=== PATIENT | male | born 1940 | race Caucasian/White ===

== ENCOUNTER 2016-07-21 | Outpatient (CLI) | payer MEDICARE | END 2016-07-21 20:33 | disposition EMS.NT | DX: R06.00 Dyspnea, unspecified (principal) ==

== ENCOUNTER 2017-07-28 12:48 | Emergency (ER) | payer MEDICARE, OTHER ==
[2017-07-28 13:04] VITALS: BP 143/63
--- NOTE | 2017-07-28 13:34 | XRAY Preliminary Report ---
Exam: XR CHEST 2 VIEW X-RAY IMPRESSION: No acute cardiopulmonary abnormality. [facility] SITE ID: [id number]
--- NOTE | 2017-07-28 13:35 | XRAY Report ---
EXAM: CHEST RADIOGRAPHY EXAM DATE: 07/28/2017 01:22 PM. CLINICAL HISTORY: Cough,fever. COMPARISON: None. TECHNIQUE: 2 views. FINDINGS: Lungs/Pleura: No focal opacities evident. No pleural effusion. No pneumothorax. Normal volumes. Mediastinum: Heart and mediastinal contours are unremarkable. Other: None. IMPRESSION: No acute cardiopulmonary abnormality. [facility] Referring Provider Line: [phone] SITE ID: [id number]
--- NOTE | 2017-07-28 14:01 | ED Physician Documentation ---
PD HPI URI - Stated complaint Stated Complaint: FEVER - Chief complaint Chief Complaint: General - History obtained from History obtained from: Patient, Family - History of Present Illness Timing - onset: Yesterday Timing duration: Days (1) Timing details: Gradual onset, Still present Associated symptoms: Fever, Chills, Sweats, Nasal congestion, Rhinorrhea, Sinus pain (for one week.), Productive cough Contributing factors: Immunocompromised Improves by: Rest, Medication Worsened by: Activity Similar symptoms before: Diagnosis (sinusitis) Recently seen: Clinic - Additional information Additional information: 77-year-old male on Enbrel with a history of rheumatoid arthritis has developed some nasal congestion and sinus pressure about 1 week ago. He has had a cough and has swallowed a lot of phlegm. He subsequently developed a fever and arthralgias yesterday. He feels that he has been developing a sinus infection similar to what he gets every year and then yesterday he developed the acute febrile symptoms. Review of Systems Constitutional: reports: Fever, Chills, Myalgias, Fatigue, Sweats Eyes: denies: Decreased vision Ears: denies: Ear pain Nose: reports: Rhinorrhea / runny nose, Congestion, Sinus pressure / pain Throat: reports: Sore throat Cardiac: denies: Chest pain / pressure, Palpitations Respiratory: reports: Dyspnea, Cough GI: denies: Abdominal Pain, Nausea, Vomiting, Constipation, Diarrhea : denies: Dysuria, Frequency Skin: denies: Rash Musculoskeletal: denies: Neck pain, Back pain, Extremity pain Neurologic: denies: Generalized weakness, Focal weakness, Numbness PD PAST MEDICAL HISTORY - Present Medications Home Medications: Ambulatory Orders Medication Instructions Recorded Confirmed Levofloxacin [Levaquin] 500 mg PO DAILY #14 tablet 07/28/17 Oseltamivir [Tamiflu] 75 mg PO BID #10 capsule 07/28/17 - Allergies Allergies/Adverse Reactions: Allergies Allergy/AdvReac Type Severity Reaction Status Date / Time clindamycin Allergy Unknown Verified 07/28/17 13:07 Penicillins Allergy Unknown Verified 07/28/17 13:07 Sulfa (Sulfonamide Allergy Unknown Verified 07/28/17 13:07 Antibiotics) tetracycline Allergy Unknown Verified 07/28/17 13:07 PD ED PE NORMAL - Vitals Vital signs reviewed: Yes (hypertensive mild ) - General General: Alert and oriented X 3, No acute distress, Well developed/nourished - HEENT HEENT: Atraumatic, PERRL, EOMI, Ears normal, Other (dry mucous membranes. bilateral maxillary sinus point tenderness. 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, No motor deficit, No sensory deficit, Normal speech Eye Opening: Spontaneous Motor: Obeys Commands Verbal: Oriented GCS Score: 15 - Psych Psych: Normal mood, Normal affect Results - Vitals Vitals: Vital Signs - 24 hr 07/28/17 13:02 Temperature 37.1 C Heart Rate 74 Respiratory 16 Rate Blood Pressure 143/63 H O2 Saturation 96 Oxygen O2 Source Room air - Labs Labs: Laboratory Tests 07/28/17 13:05 Influenza A (Rapid) Negative Influenza B (Rapid) POSITIVE H Influenza Types A,B Ag + H - Rads (name of study) 2 view chest Radiology: Prelim report reviewed (Impression: No acute cardiopulmonary abnormality.), EMP read indepedently, See rad report PD MEDICAL DECISION MAKING - ED course Complexity details: reviewed old records, reviewed results, re-evaluated patient , considered differential, d/w patient, d/w family ED course: 77-year-old male on Enbrel who has developed signs of a sinus infection typical for him for this time of year. I reviewed his record and found a prior transfer for sinus symptoms 1 year ago to the day. He was on Levaquin at that time and relates that that was successful in treating his sinus infection. He has subsequently developed influenza B. I suspect he developed influenza B yesterday by history. Here in the emergency department he is given dexamethasone 10 mg orally we will place him both on Levaquin and Tamiflu. Departure - Departure Disposition: 01 Home, Self Care Clinical Impression: Influenza B Sinusitis Qualifiers: Sinusitis location: maxillary Chronicity: acute Recurrence: not specified as recurrent Qualified Code(s): J01.00 - Acute maxillary sinusitis, unspecified Condition: Stable Instructions: ED Sinusitis Abx Tx, ED Flu Follow-Up: Nitesh,Neil A, MD [Primary Care Provider] - Prescriptions: Levofloxacin [Levaquin] 500 mg PO DAILY #14 tablet Oseltamivir [Tamiflu] 75 mg PO BID #10 capsule
[2017-07-28] MEDS ORDERED: DEXAMETHASONE 10 MG/ML VIAL PO STA (14:13)
[2017-07-28] MEDS ORDERED: CHERRY SYRUP 10 ML UDC PO ONE (14:28)
== END 2017-07-28 14:28 | disposition home or self-care (01) ==
LOC: ED 12:48
DX: J10.1 Influenza due to other identified influenza virus with other respiratory manifestations (principal); J01.00 Acute maxillary sinusitis, unspecified; M06.9 Rheumatoid arthritis, unspecified
CPT/HCPCS: 71046; 87275; 87276; 99283; 99284; A9270

== ENCOUNTER 2017-07-31 22:20 | Outpatient (CLI) | payer MEDICARE, OTHER | END 2017-07-31 22:21 | disposition critical access hospital (66) | LOC: EMS 22:20 | PROVIDERS: ATTEND Surgery | DX: R40.0 Somnolence (principal); R06.00 Dyspnea, unspecified; R05 Cough; R50.9 Fever, unspecified | CPT/HCPCS: A0425; A0427 ==

== ENCOUNTER 2017-07-31 22:53 | Inpatient (IN) | payer MEDICARE, OTHER ==
[2017-07-31 23:16] LABS: BASOPHILS # (AUTO) 0.1 10^3/uL (0.0-0.1); BASOPHILS % (AUTO) 0.8 %; EOSINOPHILS % (AUTO) 0.1 %; HGB - HEMOGLOBIN 14.4 g/dL (14.0-18.0); LYMPHOCYTES # (AUTO) 0.7 10^3/uL (1.5-3.5); LYMPHOCYTES % (AUTO) 8.7 %; MEAN CORPUSCULAR HEMOGLOBIN 32.6 pg (27.0-31.0); MEAN CORPUSCULAR HGB CONC 34.5 g/dL (32.0-36.0); MEAN CORPUSCULAR VOLUME 94.7 fL (80.0-94.0); MONOCYTES # (AUTO) 1.2 10^3/uL (0.0-1.0); MONOCYTES % (AUTO) 15.8 %; NEUTROPHILS # (AUTO) 5.6 10^3/uL (1.5-6.6); NEUTROPHILS % (AUTO) 74.6 %; PLT - PLATELET COUNT 107 10^3/uL (130-450); RED BLOOD COUNT 4.43 10^6/uL (4.70-6.10); WHITE BLOOD COUNT 7.5 x10^3/uL (4.8-10.8)
[2017-07-31 23:29] LABS: ALBUMIN 3.7 g/dL (3.2-5.5); BILIRUBIN,TOTAL 0.7 mg/dL (0.2-1.0); CALCIUM 8.2 mg/dL (8.5-10.3); TOTAL PROTEIN 7.4 g/dL (6.7-8.2)
--- NOTE | 2017-07-31 23:53 | XRAY Report ---
EXAM: CHEST RADIOGRAPHY EXAM DATE: 07/31/2017 11:45 PM. CLINICAL HISTORY: Bibasilar rhonchi. COMPARISON: None. TECHNIQUE: 2 views. FINDINGS: Lungs/Pleura: Mild bilateral atelectasis or infiltrate. No pleural effusion seen. No pneumothorax. Mediastinum: Lordotic position. Mild cardiomegaly. Other: None. IMPRESSION: 1. Mild cardiomegaly with mild bilateral atelectasis or infiltrate. [facility] Referring Provider Line: [phone] SITE ID: [id number]
--- NOTE | 2017-07-31 23:58 | ED Physician Documentation ---
PD HPI URI - Stated complaint Stated Complaint: CONFUSED - Chief complaint Chief Complaint: Resp - History obtained from History obtained from: Patient, Family - History of Present Illness Timing - onset: How many days ago (5) Timing duration: Days (5) Timing details: Gradual onset, Still present, Other (now worse) Associated symptoms: Fever, Chills, Sweats, Nasal congestion, Rhinorrhea, Dry cough, Dyspnea Contributing factors: Immunocompromised Improves by: Rest, Medication Similar symptoms before: Diagnosis (pneumonia) Recently seen: Emergency Dept - Additional information Additional information: 77-year-old male on Enbrel developed a cough and congestion a lot of nasal postnasal drainage 10 days ago and about 5 days ago developed an acute febrile illness. He came to the emergency department was diagnosed with influenza with a positive swab and he was placed on Tamiflu and Levaquin. He has a history of yearly sinus infection and felt that he had sinus infection again. Despite this treatment the patient has developed acute worsening this morning with reduced level of activity and has been sleeping all day this evening he is even a little bit confused. Review of Systems Constitutional: reports: Fever, Chills, Myalgias, Fatigue Eyes: denies: Decreased vision Ears: denies: Ear pain Nose: reports: Rhinorrhea / runny nose, Congestion, Sinus pressure / pain Throat: denies: Sore throat Cardiac: denies: Chest pain / pressure, Palpitations Respiratory: reports: Dyspnea, Cough GI: denies: Abdominal Pain, Nausea, Vomiting : denies: Dysuria, Frequency Skin: denies: Rash Musculoskeletal: denies: Neck pain, Back pain, Extremity pain Neurologic: reports: Generalized weakness, Confused. denies: Focal weakness, Numbness PD PAST MEDICAL HISTORY - Past Medical History Past Medical History: Yes Musculoskeletal: Rheumatoid arthritis - Past Surgical History Past Surgical History: Yes Ortho: Hip replacement, Shoulder arthroplasty - Present Medications Home Medications: Ambulatory Orders Medication Instructions Recorded Confirmed Albuterol Sulf [Ventolin Hfa 1 - 2 puffs INH Q4HR PRN 07/28/17 07/28/17 Inhaler] Azelastine HCl 137 mcg NS 07/28/17 Budesonide/Formoterol Fumarate 10.2 gm IH 07/28/17 [Symbicort 160-4.5 Mcg Inhaler] Calcium Carbonate [Antacid] 07/28/17 Celecoxib [CeleBREX] 100 mg PO BID 07/28/17 07/28/17 Chlorthalidone 12.5 mg 07/28/17 Clobetasol Propionate/Emoll 15 gm TP 07/28/17 [Clobetasol Emollient 0.05% Crm] Flunisolide 25 ml NS 07/28/17 Folic Acid 1 mg PO DAILY 07/28/17 07/28/17 Gabapentin 600 mg PO 07/28/17 Infliximab-Abda [Renflexis] 100 mg IV 07/28/17 Ipratropium/Albuterol Sulfate 07/28/17 [Iprat-Albut 0.5-3(2.5) mg/3 ml] Levofloxacin [Levaquin] 500 mg PO DAILY #14 tablet 07/28/17 Loratadine [Claritin] 10 mg PO 07/28/17 Methotrexate/Pf [Rasuvo 10 mg/0.2 07/28/17 ml Autoinj] Methotrexate/Pf [Rasuvo 10 mg/0.2 10 mg SQ 07/28/17 ml Autoinj] Omeprazole 40 mg PO 07/28/17 Oseltamivir [Tamiflu] 75 mg PO BID #10 capsule 07/28/17 Promethazine HCl/Codeine 5 ml PO 07/28/17 [Prometh-Codein 6.25-10 mg/5 ml] Sildenafil Citrate 100 mg PO 07/28/17 - Allergies Allergies/Adverse Reactions: Allergies Allergy/AdvReac Type Severity Reaction Status Date / Time clindamycin Allergy Unknown Verified 07/28/17 13:07 Penicillins Allergy Unknown Verified 07/28/17 13:07 Sulfa (Sulfonamide Allergy Unknown Verified 07/28/17 13:07 Antibiotics) tetracycline Allergy Unknown Verified 07/28/17 13:07 - Social History Does the pt smoke?: No Smoking Status: Never smoker Does the pt drink ETOH?: No Does the pt have substance abuse?: Yes Substance Use and Type: Marijuana - Immunizations Immunizations are current?: Yes PD ED PE NORMAL - Vitals Vital signs reviewed: Yes (febrile and hypertensive ) - General General: No acute distress, Well developed/nourished, Other (77-year-old male today appears fatigued and flush.) - HEENT HEENT: Atraumatic, PERRL, EOMI, Other (dry mucous membranes) - Neck Neck: Supple, no meningeal sign, No bony TTP - Cardiac Cardiac: RRR, No murmur - Respiratory Respiratory: No respiratory distress, Other (Rhonchi bibasilar worse on the left than the right) - Abdomen Abdomen: Soft, Non tender - Back Back: No CVA TTP, No spinal TTP - Derm Derm: Normal color, Warm and dry, No rash - Extremities Extremities: No deformity, No edema - Neuro Neuro: Alert and oriented X 3, No motor deficit, No sensory deficit, Normal speech Eye Opening: Spontaneous Motor: Obeys Commands Verbal: Oriented GCS Score: 15 - Psych Psych: Normal mood, Normal affect Results - Vitals Vitals: Vital Signs - 24 hr 07/31/17 08/01/17 22:56 00:00 Temperature 37.8 C H 39.5 C H Heart Rate 95 92 Respiratory 18 20 Rate Blood Pressure 145/79 H O2 Saturation 95 94 Oxygen O2 Source Room air - Labs Labs: Laboratory Tests 07/31/17 07/31/17 07/31/17 23:09 23:09 23:09 WBC 7.5 RBC 4.43 L Hgb 14.4 Hct 41.9 L MCV 94.7 H MCH 32.6 H MCHC 34.5 RDW 15.0 Plt Count 107 L MPV 9.0 Neut # 5.6 Lymph # 0.7 L Clarke # 1.2 H Eos # 0.0 Baso # 0.1 Absolute Nucleated RBC 0.00 Nucleated RBC % 0.0 Sodium 134 L Potassium 3.4 L Chloride 95 L Carbon Dioxide 26 Anion Gap 13.0 BUN 22 H Creatinine 1.0 Estimated GFR (MDRD) 73 L Glucose 147 H Lactic Acid Calcium 8.2 L Total Bilirubin 0.7 AST 30 ALT 27 Alkaline Phosphatase 75 Troponin I < 0.04 Total Protein 7.4 Albumin 3.7 Globulin 3.7 Albumin/Globulin Ratio 1.0 Lipase 16 L 07/31/17 23:09 WBC RBC Hgb Hct MCV MCH MCHC RDW Plt Count MPV Neut # Lymph # Clarke # Eos # Baso # Absolute Nucleated RBC Nucleated RBC % Sodium Potassium Chloride Carbon Dioxide Anion Gap BUN Creatinine Estimated GFR (MDRD) Glucose Lactic Acid 2.1 Calcium Total Bilirubin AST ALT Alkaline Phosphatase Troponin I Total Protein Albumin Globulin Albumin/Globulin Ratio Lipase - Rads (name of study) 2 veiw chest Radiology: Prelim report reviewed (Impression: Mild cardiomegaly with mild bilateral atelectasis or infiltrate.), EMP read indepedently, See rad report PD MEDICAL DECISION MAKING - ED course Complexity details: reviewed old records, reviewed results, re-evaluated patient , considered differential, d/w patient, d/w family ED course: 77-year-old male recently treated in the emergency department for influenza and sinusitis with Tamiflu and Levaquin has had a saltatory change in his health this morning with decreased energy and this evening some confusion and he is found on exam today to have pneumonia bibasilar despite the aggressive treatment. Departure - Departure Disposition: [facility] DC/Xfer Clinical Impression: Pneumonia Qualifiers: Pneumonia type: due to unspecified organism Laterality: bilateral Lung location : lower lobe of lung Qualified Code(s): J18.9 - Pneumonia, unspecified organism Condition: Stable
[2017-08-01] MEDS ORDERED: ACETAMINOPHEN 325 MG TABLET PO STA
[2017-08-01] MEDS ORDERED: cefTRIAXone 1 GM in SODIUM CHLORIDE 0.9% MINIBAG 100 ML IV STA ×2
[2017-08-01] MEDS ORDERED: ONDANSETRON ODT 4 MG TABLET TL PRN (00:06)
[2017-08-01] MEDS ORDERED: oxyCODONE 5 MG TABLET PO PRN (00:06)
[2017-08-01] MEDS ORDERED: SODIUM CHLORIDE 0.9% 1,000 ML IV ONE (00:06)
[2017-08-01] MEDS ORDERED: PROMETHAZINE HCL PO PRN (00:22)
[2017-08-01] MEDS ORDERED: CODEINE PO PRN (00:22)
[2017-08-01] MEDS: SODIUM CHLORIDE 0.9% 1,000 ML IV SCH ×2 (01:43→10:02)
[2017-08-01] MEDS: levoFLOXacin 750 MG/150 ML 750 MG/150 ML BAG IV SCH (01:45)
[2017-08-01] MEDS ORDERED: IPRATROPIUM/ALBUTEROL 3 ML NEB INH PRN (02:00)
[2017-08-01] MEDS: guaiFENesin/CODEINE 5 ML UDC PO PRN ×3 (02:41→16:27)
[2017-08-01] MEDS: SODIUM CHLORIDE FLUSH 0.9% 10 ML SYRINGE IVP SCH ×3 (02:50→16:08)
[2017-08-01] MEDS ORDERED: GABAPENTIN 300 MG CAPSULE PO SCH ×3 (03:00→09:00)
[2017-08-01] MEDS: GABAPENTIN 300 MG CAPSULE PO SCH ×2 (03:02→09:08)
[2017-08-01] MEDS: FORMOTEROL FUMARATE NEB 20 MCG/2 ML INH SCH ×3 (03:15→20:02)
[2017-08-01] MEDS: BUDESONIDE 0.5 MG/2 ML NEB INH SCH ×3 (03:15→20:02)
--- NOTE | 2017-08-01 03:25 | HISTORY & PHYSICAL EXAMINATION ---
DATE OF SERVICE: 08/01/2017 Physician: Jocelyne Rojo MD PRIMARY CARE PROVIDER: Neil Dowling MD LAY OUT TECHNICIAN: Betsey Thomas DO ADMITTING PROVIDER: Jocelyne Rojo MD CHIEF COMPLAINT: Unremitting cough, shortness of breath in a patient with asthma and rheumatoid arthritis. HISTORY OF PRESENT ILLNESS: The patient is a 77-year-old man who usually gets his care at [facility] with his primary care provider and combination man there. He has a history of rheumatoid arthritis with ankylosing spondylitis, psoriatic arthritis , and is on infliximab and methotrexate. He has a previous history of MRSA sepsis in 2011, and has chronic allergies with chronic allergic rhinitis. He has had previous episodes of sinusitis, and was seen in this hospital a year ago in the emergency room and treated with Levaquin. He became sick with a URI around July 22. He developed runny nose, coughing , sneezing, sore throat and chest congestion. He developed a fever on July 27, which brought him to our emergency room on July 28. In our emergency room, he was treated as sinusitis and he also had flu positive serology. As such, he was sent home on Levaquin and Tamiflu. In the last 24-36 hours, his fever has continued. His coughing is so spasmodic that he cannot lie down and he cannot breathe. He will turn so red that it alarms his . He has even passed out once with the coughing. There is no hemoptysis. He has a poor appetite and is not eating very much, but he denies any abdominal pain. Today, he has been sleeping all day long and he has gotten confused. He has had sweats, shortness of breath, and the brought him back to the emergency room. In the emergency room, he was febrile to 37.8, normotensive, and had 95% room air oxygen saturation. His white cell count is 7.5. While in the emergency room, he then spiked a temperature to 39.5. He continues to have spasmodic coughing and wheezing. The chest x-ray shows new pneumonia. He did not have pneumonia on the July 28 chest x-ray. Lactic acid is normal. He is now brought in with pneumonia and exacerbation of his asthma status, in a patient who is severely immunocompromised with immune modulating medication. PAST MEDICAL HISTORY 1. Rheumatoid arthritis/ankylosing spondylitis/psoriatic arthritis. As a result, he has had numerous joint procedures. He had a right shoulder arthroscopy, a left ankle arthroscopy. He had a right total hip replacement. 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 2. MRSA sepsis, 2011. 3. Extrinsic asthma. ALLERGIES ALLERGIC TO: 1. CLINDAMYCIN, WHICH CAUSES THROAT SWELLING. 2. PENICILLIN G, WHICH CAUSES HIVES. 3. SULFA CAUSES NAUSEA AND VOMITING. 4. TETRACYCLINE CAUSES HIVES. MEDICATION LIST 1. Acetaminophen 500 mg 1-2 tablets every 6 hours as needed. 2. Albuterol HFA 2 puffs every 4 hours as needed. 3. Astelin nose spray 137 mcg, 2 sprays in the nose twice a day. 4. Flunisolide 25 mcg spray 2 sprays each nostril twice a day. 5. Ipratropium albuterol 0.5 mg/3 mg nebulized solution 3 times a day. 6. Symbicort 160/4.5 mg HFA 2 puffs twice a day. 7. Celebrex 100 mg b.i.d. 8. Chlorthalidone 25 mg tablet 1/2 tablet once a day. 9. Claritin 10 mg daily. 10. Clobetasol 0.05% cream, known as Temovate, apply to psoriatic rash twice a day. 11. Gabapentin 600 mg tablet in the morning and 2 tablets every evening. 12. Folic acid 1 mg p.o. daily. 13. Loratadine with Sudafed 5/120 mg sustained release b.i.d. 14. Singulair 10 mg daily. 15. Multivitamin p.o. daily. 16. Calcium orally once a day. 17. Mupirocin 2% to affected area twice a day. 18. Cannabis body lotion, apply to joints once a day as needed for pain control. 19. [place] 3 fish oil every day. 20. Omeprazole 40 mg a day. 21. Methotrexate 10 mg injection once weekly. 22. Remicade 100 mg every 6 weeks. 23. Viagra 100 mg 1/2 tablet daily as needed. SOCIAL HISTORY: He is a nonsmoker. Rare alcohol drinker. He is from [place]. 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 He has lived on the [place] since 1986. He is to his first . They live in their own home. They are gradually getting it ready for increasing disability on his part. They plan on living in their home permanently and hiring in-home support as he needs more and more help. He is a FULL CODE status. They have not filled out the paperwork yet, but he would like to be intubated and would like to get chest compressions as the case may be. Once he is on life support, however, I should discuss with his and children about how long he should maintain on life support, depending on what the conditions are. FAMILY HISTORY: Dad at age 67 of a ruptured aortic aneurysm. Mom in her 80s of old age. He has 1 brother and 2 sisters, and they are all alive and healthy. There is no cancer, heart attack, stroke, thyroid disorder, diabetes. His 3 children are healthy, except one of them has diabetes. REVIEW OF SYSTEMS CONSTITUTIONAL: He has had no recent weight changes. He has had fevers and sweats in the last week. ENT: He is moderately deaf, but denies any recent changes in vision. No amaurosis. No glaucoma. No problems with dentition. PULMONARY: With asthma that is controlled with the above medications. Allergies are pretty severe with rhinorrhea, coryza. They are not so much steady on a daily basis, but there are flares depending on the season. GASTROINTESTINAL: Denies abdominal pain, change in bowel habits, blood in the stool. GENITOURINARY: Denies nocturia, hematuria. He does have erectile dysfunction. SKIN: Psoriatic plaques, rashes, but no other new lesions. JOINTS: He pushes himself hard. He is still able to mow the lawn, drive. Does all of his activities of daily living. He lives on a constant basis of pain, but pushes through that. He used to be on oxycodone and took himself off it and uses cannabis mainly. He relies on modifying his lifestyle, a good diet, and working with Dr. Thomas to get him through. CENTRAL NERVOUS SYSTEM: Denies syncope, seizures. Confusion was only today. PHYSICAL EXAMINATION VITAL SIGNS: Temperature spiked to 39.5 from 37.8 in the ED. Heart rate remains in the low 90s. Blood pressure is 148/67. His respirations are 20, and he is 94% on room air. GENERAL: He is a tall, alert, white male who looks older than his stated age, deeply nasal tone of voice, some rhinorrhea. During the exam I cannot tell if his deafness causes him not to be able to hear me, or if it is my mask, but he relies on his quite a bit to answer his questions. HEAD AND NECK: Rhinorrhea, coryza. The back of the throat is injected, but there is no exudate. Tympanic membranes are retracted, and slightly red and injected. Lips are dry. Oral mucosa is dry. NECK: shotty neck adenopathy that is nontender. No goiter or bruits. LUNGS: Rhonchi, but no increased respiratory effort. He has dull bases. Crackles at the bases. HEART: PMI is normally placed with a regular rate and rhythm. No right ventricular lift. ABDOMEN: Soft, nontender. No organomegaly. EXTREMITIES: Warm. Skin is hot to touch. He has psoriatic arthritis, but there is no clubbing or cyanosis or edema. NEUROLOGIC: He seems to exhibit some deafness, some mild psychomotor slowing with cognitive delay that I think may be due to his illness and not described at his baseline status. He has no focal deficits. Hand grasp strength is normal. He is able to help the nurse transfer him from the [place] [facility] to his [facility] on [facility]. LABORATORY DATA: White cell count is 7.5, hemoglobin 14.4, hematocrit 41.9, MCV 94. Platelets low at 107. Sodium is 134, potassium 3.4, BUN 22, creatinine 1, random glucose 147. Lactic acid 2.1. Troponin less than 0.04. Liver enzymes normal. Chest x-ray has mild cardiomegaly with bibasilar atelectasis or infiltrate. ASSESSMENT/PLAN 1. Community-acquired pneumonia in a patient who has multiple risk factors with regard to immunosuppression. He takes immune modulating disease drugs. He already has asthma and takes inhaled steroids, and has been on recent antibiotics for sinusitis. His allergies also make it very difficult to choose which medications to give him. He also has a history of methicillin-resistant Staphylococcus aureus sepsis. At this time, I am going to give him Rocephin even with the PENICILLIN ALLERGY. I have explained to his that there may be some cross reactivity. The PENICILLIN ALLERGY is of many years' duration and happened even before she met him so she does not know what happens when he takes penicillins. I have also continued his Levaquin IV. I would consider speaking to Infectious Disease tomorrow at [place], and seeing if they would recommend changing his antibiotics. In the meantime, review blood cultures and adjust as needed. We will order sputum cultures and sputum Gram stain. 2. Influenza. Today would be day 5 of his Tamiflu. As such, we will give 2- 3 more doses and stop. 3. History of extrinsic asthma. Change medications to inhaled DuoNeb, inhaled Pulmicort. 4. Rheumatoid arthritis with associated other inflammatory disorders. I have explained to him and his that I am not going to be giving his usual medications with regard to that while he is here. They understand the implications and agreed to that. 5. History of allergic rhinitis. We will continue his Claritin, but at this time we will hold off on his nasal sprays. 6. Chronic pain. Gabapentin will be continued. Oxycodone p.r.n. Tylenol p.r.n. 7. FULL CODE status. 8. Deep venous thrombosis prophylaxis with Lovenox. ATTESTATION: The patient will be admitted for less than 96 hours. At 96 hours, she will be evaluated from transfer or discharge. TD: 08/01/2017 03:19 LITTLE
[2017-08-01] MEDS: ACETAMINOPHEN 325 MG TABLET PO PRN ×3 (04:42→19:53)
[2017-08-01] MEDS: BENZOCAINE/MENTHOL LOZENGE MM PRN ×3 (05:02→19:51)
[2017-08-01 06:12] LABS: BASOPHILS % (AUTO) 0.3 %; HGB - HEMOGLOBIN 13.7 g/dL (14.0-18.0); LYMPHOCYTES % (AUTO) 8.8 %; MEAN CORPUSCULAR HGB CONC 33.6 g/dL (32.0-36.0); MEAN CORPUSCULAR VOLUME 95.2 fL (80.0-94.0); MEAN PLATELET VOLUME 9.3 fL (7.4-11.4); MONOCYTES % (AUTO) 12.6 %; NEUTROPHILS % (AUTO) 78.3 %; PLT - PLATELET COUNT 102 10^3/uL (130-450); RED BLOOD COUNT 4.29 10^6/uL (4.70-6.10); RED CELL DISTRIBUTION WIDTH 15.1 % (12.0-15.0); WHITE BLOOD COUNT 9.4 x10^3/uL (4.8-10.8)
[2017-08-01 06:14] LABS: CALCIUM 7.7 mg/dL (8.5-10.3)
[2017-08-01 06:25] LABS: ABNORMAL LYMPHS % (MANUAL) 0 %
[2017-08-01 06:47] LABS: BAND NEUTROPHILS % (MANUAL) 17 %; DIFFERENTIAL COMMENT MANUAL DIFFERENTIAL; LYMPHOCYTES # (MANUAL) 0.9 10^3/uL (1.5-3.5); LYMPHOCYTES % (MANUAL) 10 %; MONOCYTES # (MANUAL) 0.6 10^3/uL (0.0-1.0); NEUTROPHILS # (MANUAL) 7.9 10^3/uL (1.5-6.6); NEUTROPHILS % (MANUAL) 67 %; PLATELET ESTIMATE, MANUAL DECREASED (<130,000) (NORMAL); RBC MORPHOLOGY (MULTIPLE) NORMAL APPEARANCE (NORMAL)
[2017-08-01] MEDS: ENOXAPARIN 40 MG/0.4 ML SYRINGE SUBQ SCH (09:07)
[2017-08-01] MEDS: cefTRIAXone 2 GM in SODIUM CHLORIDE 0.9% MINIBAG 100 ML IV SCH (09:07)
[2017-08-01] MEDS: SACCHAROMYCES BOULARDII 250 MG CAPSULE PO SCH ×2 (09:08→16:08)
[2017-08-01] MEDS: CELECOXIB 100 MG CAPSULE PO SCH ×2 (09:08→20:00)
[2017-08-01] MEDS: FOLIC ACID 1 MG TABLET PO SCH (09:08)
[2017-08-01] MEDS: CHLORTHALIDONE 25 MG TABLET PO SCH (09:08)
[2017-08-01] MEDS: OSELTAMIVIR 75 MG CAPSULE PO SCH ×2 (09:10→20:00)
[2017-08-01] MEDS: POLYETHYLENE GLYCOL 3350 17 GM PACKET PO SCH (09:12)
[2017-08-01] MEDS: CLOBETASOL EMOLLIENT 0.05% TOP SCH ×2 (09:56→16:08)
[2017-08-01 12:44] LABS: BILIRUBIN,URINE NEGATIVE (NEGATIVE); CLARITY,URINE CLEAR (CLEAR); GLUCOSE, URINE (UA) NEGATIVE (NEGATIVE); KETONES,URINE (UA) NEGATIVE (NEGATIVE); LEUKOCYTE ESTERASE, URINE NEGATIVE (NEGATIVE); NITRITE,URINE NEGATIVE (NEGATIVE); OCCULT BLOOD,URINE NEGATIVE (NEGATIVE); PH,URINE 6.5 PH (5.0-7.5); PROTEIN,URINE TRACE mg/dL (NEGATIVE); UROBILINOGEN,URINE 0.2 (NORMAL) E.U./dL (NORMAL)
[2017-08-01] MEDS: ONDANSETRON 4 MG/2 ML VIAL IVP PRN (16:27)
[2017-08-01] MEDS: GABAPENTIN 400 MG CAPSULE PO SCH (20:00)
[2017-08-02] MEDS: guaiFENesin/CODEINE 5 ML UDC PO PRN ×2 (00:22→18:46)
[2017-08-02] MEDS: levoFLOXacin 750 MG/150 ML 750 MG/150 ML BAG IV SCH (00:22)
[2017-08-02] MEDS: SODIUM CHLORIDE FLUSH 0.9% 10 ML SYRINGE IVP SCH ×3 (00:22→18:48)
[2017-08-02 06:03] LABS: BASOPHILS % (AUTO) 0.1 %; LYMPHOCYTES % (AUTO) 6.9 %; MEAN CORPUSCULAR HEMOGLOBIN 31.9 pg (27.0-31.0); MEAN CORPUSCULAR HGB CONC 33.6 g/dL (32.0-36.0); MEAN CORPUSCULAR VOLUME 95.1 fL (80.0-94.0); MEAN PLATELET VOLUME 9.3 fL (7.4-11.4); MONOCYTES # (AUTO) 1.3 10^3/uL (0.0-1.0); MONOCYTES % (AUTO) 9.1 %; NEUTROPHILS # (AUTO) 12.4 10^3/uL (1.5-6.6); NEUTROPHILS % (AUTO) 83.9 %; PLT - PLATELET COUNT 97 10^3/uL (130-450); RED BLOOD COUNT 4.37 10^6/uL (4.70-6.10); RED CELL DISTRIBUTION WIDTH 15.2 % (12.0-15.0); WHITE BLOOD COUNT 14.8 x10^3/uL (4.8-10.8)
[2017-08-02 06:05] LABS: CALCIUM 8.1 mg/dL (8.5-10.3); CREATININE 0.9 mg/dL (0.6-1.2)
[2017-08-02] MEDS: BENZOCAINE/MENTHOL LOZENGE MM PRN ×2 (06:05→18:46)
[2017-08-02] MEDS: ACETAMINOPHEN 325 MG TABLET PO PRN ×3 (06:05→18:47)
[2017-08-02] MEDS ORDERED: POTASSIUM CHLORIDE 20 MEQ TABLET PO ONE (07:04)
[2017-08-02] MEDS: FORMOTEROL FUMARATE NEB 20 MCG/2 ML INH SCH ×2 (07:49→19:23)
[2017-08-02] MEDS: BUDESONIDE 0.5 MG/2 ML NEB INH SCH ×2 (07:49→19:23)
[2017-08-02] MEDS: POLYETHYLENE GLYCOL 3350 17 GM PACKET PO SCH (09:28)
[2017-08-02] MEDS: ENOXAPARIN 40 MG/0.4 ML SYRINGE SUBQ SCH (09:28)
[2017-08-02] MEDS: cefTRIAXone 2 GM in SODIUM CHLORIDE 0.9% MINIBAG 100 ML IV SCH (09:29)
[2017-08-02] MEDS: CELECOXIB 100 MG CAPSULE PO SCH ×2 (09:30→21:23)
[2017-08-02] MEDS: CHLORTHALIDONE 25 MG TABLET PO SCH (09:30)
[2017-08-02] MEDS: OSELTAMIVIR 75 MG CAPSULE PO SCH (09:30)
[2017-08-02] MEDS: GABAPENTIN 300 MG CAPSULE PO SCH (09:31)
[2017-08-02] MEDS: FOLIC ACID 1 MG TABLET PO SCH (09:31)
[2017-08-02] MEDS: SACCHAROMYCES BOULARDII 250 MG CAPSULE PO SCH ×2 (09:31→18:46)
[2017-08-02] MEDS: CLOBETASOL EMOLLIENT 0.05% TOP SCH ×2 (09:39→18:47)
--- NOTE | 2017-08-02 18:41 | PROVIDER PROGRESS NOTE ---
Assessment/Plan - Problem List (1) Community acquired pneumonia Qualifiers: Laterality: unspecified laterality Qualified Code(s): J18.9 - Pneumonia, unspecified organism Assessment/Plan: Respiratory status has significantly improved. Continue iv antibiotics. Will get rest an d exercise oximetry tomorrow, to evaluate for need for home O2 order. (2) Influenza B Assessment/Plan: Continue to finish a course of Tamiflu. (3) Asthma Assessment/Plan: Significantly bnetter pulmonary exam, but still symptomatic. Continue iv steroids and nebs. (4) Rheumatoid arthritis Assessment/Plan: Pt had 7/10 pain this am. Will change po Acetominophen to iv Ofirmev prn arthritic pain. - Current Meds Current Meds: Current Medications Generic Name Dose Route Start Last Admin Trade Name Freq PRN Reason Stop Dose Admin Acetaminophen 650 mg 08/01/17 00:06 08/02/17 09:31 Tylenol PO 650 mg Q4HR PRN Administration Pain 1 to 4 Budesonide 0.5 mg 08/01/17 03:00 08/02/17 07:49 Pulmicort INH 0.5 mg RTBID OMAR Administration Celecoxib 100 mg 08/01/17 09:00 08/02/17 09:30 Celebrex PO 100 mg BID OMAR Administration Chlorthalidone 12.5 mg 08/01/17 09:00 08/02/17 09:30 Chlorthalidone PO 12.5 mg DAILY OMAR Administration Enoxaparin Sodium 40 mg 08/01/17 09:00 08/02/17 09:28 Lovenox SUBQ 40 mg DAILY OMAR Administration Folic Acid 1 mg 08/01/17 09:00 08/02/17 09:31 PO 1 mg DAILY OMAR Administration Formoterol Fumarate 20 mcg 08/01/17 03:00 08/02/17 07:49 Perforomist INH 20 mcg RTBID OMAR Administration Gabapentin 600 mg 08/01/17 09:00 08/02/17 09:31 Neurontin PO 600 mg DAILY OMAR Administration Gabapentin 1,200 mg 08/01/17 21:00 08/01/17 20:00 Neurontin PO 1,200 mg QPM OMAR Administration Guaifenesin/Codeine Phosphate 5 ml 08/01/17 02:01 08/02/17 00:22 Robitussin Ac PO 5 ml Q6HR PRN Administration Cough Ceftriaxone Sodium 2 gm/ 100 mls @ 200 mls/hr 08/01/17 09:00 08/02/17 10:19 Sodium Chloride IV Infused DAILY OMAR Infusion Levofloxacin 750 mg in 150 mls @ 100 mls/hr 08/01/17 01:00 08/02/17 01:52 Levaquin 750 Mg/150 Ml IV Infused Q24H OMAR Infusion Ondansetron HCl 4 mg 08/01/17 00:06 08/01/17 16:27 Zofran Inj IVP 4 mg Q6HR PRN Administration Nausea / Vomiting Ondansetron HCl 4 mg 08/01/17 00:06 08/01/17 01:46 Zofran Odt TL 4 mg Q6HR PRN Administration Nausea / Vomiting Clobetasol Emollient 1 each 08/01/17 08:00 08/02/17 09:39 0.05% Crm TOP Not Given BIDWM OMAR Polyethylene Glycol 17 gm 08/01/17 09:00 08/02/17 09:28 Miralax PO 17 gm DAILY OMAR Administration Saccharomyces Boulardii 250 mg 08/01/17 08:00 08/02/17 09:31 Florastor PO 250 mg BIDWM OMAR Administration Sodium Chloride 10 ml 08/01/17 01:00 08/02/17 09:29 Normal Saline Flush 0.9% IVP 10 ml 0100,0900,1700 OMAR Administration Throat Lozenges 1 lozenge 08/01/17 04:51 08/02/17 06:05 Cepacol MM 1 lozenge Q2HR PRN Administration Throat pain - Lab Result Fish Bone Diagrams: 08/02/17 05:34 08/02/17 05:34 Subjective - Subjective Patient Reports: Feeling Better, Resting Comfortably, Other (Still very tired and SOB when walked to bathroom.) Nursing Reports: Other (Still tired.) Objective Vital Signs: Vital Signs - 24 hr 08/01/17 08/01/17 08/02/17 20:02 23:53 07:49 Temperature 36.4 C L Heart Rate 79 86 Heart Rate [ 70 Brachial] Respiratory 18 16 20 Rate Blood Pressure 106/45 L [Left Brachial artery] Blood Pressure [Right Brachial artery] O2 Saturation 94 08/02/17 08/02/17 08/02/17 08:09 09:30 16:12 Temperature 36.4 C L 36.9 C 36.6 C Heart Rate Heart Rate [ 78 85 78 Brachial] Respiratory 16 18 16 Rate Blood Pressure [Left Brachial artery] Blood Pressure 123/62 129/67 119/53 L [Right Brachial artery] O2 Saturation 92 95 97 Oxygen O2 Source Room air I&O (Last 24 Hrs): Intake and Output Totals x24h 07/31/17 08/01/17 08/02/17 23:59 23:59 23:59 Intake Total 3460 690 Output Total 775 Balance 2685 690 General: Alert, Oriented x3 HEENT: Mucous membr. moist/pink, Other (Eyes appear puffy.) Neck: Supple, No JVD Neuro: Non Focal Cardiovascular: No murmurs Respiratory: Rhonchi (R base> L) Abdomen: Soft Extremities: No edema - Results Results: Laboratory Results WBC 14.8 x10^3/uL (4.8-10.8) H 08/02/17 05:34 RBC 4.37 10^6/uL (4.70-6.10) L 08/02/17 05:34 Hgb 14.0 g/dL (14.0-18.0) 08/02/17 05:34 Hct 41.5 % (42.0-52.0) L 08/02/17 05:34 MCV 95.1 fL (80.0-94.0) H 08/02/17 05:34 MCH 31.9 pg (27.0-31.0) H 08/02/17 05:34 MCHC 33.6 g/dL (32.0-36.0) 08/02/17 05:34 RDW 15.2 % (12.0-15.0) H 08/02/17 05:34 Plt Count 97 10^3/uL (130-450) L 08/02/17 05:34 MPV 9.3 fL (7.4-11.4) 08/02/17 05:34 Neut # 12.4 10^3/uL (1.5-6.6) H 08/02/17 05:34 Lymph # 1.0 10^3/uL (1.5-3.5) L 08/02/17 05:34 Dickey # 1.3 10^3/uL (0.0-1.0) H 08/02/17 05:34 Eos # 0.0 10^3/uL (0.0-0.7) 08/02/17 05:34 Baso # 0.0 10^3/uL (0.0-0.1) 08/02/17 05:34 Absolute Nucleated RBC 0.01 x10^3/uL 08/02/17 05:34 Total Counted 100 08/01/17 05:56 Band Neuts % (Manual) 17 % (0-10) H 08/01/17 05:56 Abnorm Lymph % (Manual) 0 % 08/01/17 05:56 Nucleated RBC % 0.1 /100WBC 08/02/17 05:34 Neutrophils # (Manual) 7.9 10^3/uL (1.5-6.6) H 08/01/17 05:56 Lymphocytes # (Manual) 0.9 10^3/uL (1.5-3.5) L 08/01/17 05:56 Monocytes # (Manual) 0.6 10^3/uL (0.0-1.0) 08/01/17 05:56 Eosinophils # (Manual) 0.0 10^3/uL (0-0.7) 08/01/17 05:56 Basophils # (Manual) 0.0 10^3/uL (0-0.1) 08/01/17 05:56 Differential Comment MANUAL DIFFERENTIAL 08/01/17 05:56 Platelet Estimate DECREASED (<130,000) (NORMAL) 08/01/17 05:56 RBC Morph Micro Appear NORMAL APPEARANCE (NORMAL) 08/01/17 05:56 Sodium 132 mmol/L (135-145) L 08/02/17 05:34 Potassium 3.1 mmol/L (3.5-5.0) L 08/02/17 05:34 Chloride 95 mmol/L (101-111) L 08/02/17 05:34 Carbon Dioxide 26 mmol/L (21-32) 08/02/17 05:34 Anion Gap 11.0 (6-13) 08/02/17 05:34 BUN 16 mg/dL (6-20) 08/02/17 05:34 Creatinine 0.9 mg/dL (0.6-1.2) 08/02/17 05:34 Estimated GFR (MDRD) 82 (>89) L 08/02/17 05:34 Glucose 132 mg/dL (70-100) H 08/02/17 05:34 Lactic Acid 2.1 mmol/L (0.5-2.2) 07/31/17 23:09 Calcium 8.1 mg/dL (8.5-10.3) L 08/02/17 05:34 Total Bilirubin 0.7 mg/dL (0.2-1.0) 07/31/17 23:09 AST 30 IU/L (10-42) 07/31/17 23:09 ALT 27 IU/L (10-60) 07/31/17 23:09 Alkaline Phosphatase 75 IU/L (42-121) 07/31/17 23:09 Troponin I < 0.04 ng/mL (<0.49) 07/31/17 23:09 Total Protein 7.4 g/dL (6.7-8.2) 07/31/17 23:09 Albumin 3.7 g/dL (3.2-5.5) 07/31/17 23:09 Globulin 3.7 g/dL (2.1-4.2) 07/31/17 23:09 Albumin/Globulin Ratio 1.0 (1.0-2.2) 07/31/17 23:09 Lipase 16 U/L (22-51) L 07/31/17 23:09 Urine Color YELLOW 08/01/17 12:30 Urine Clarity CLEAR (CLEAR) 08/01/17 12:30 Urine pH 6.5 PH (5.0-7.5) 08/01/17 12:30 Ur Specific [place] 1.020 (1.002-1.030) 08/01/17 12:30 Urine Protein TRACE mg/dL (NEGATIVE) 08/01/17 12:30 Urine Glucose (UA) NEGATIVE mg/dL (NEGATIVE) 08/01/17 12:30 Urine Ketones NEGATIVE mg/dL (NEGATIVE) 08/01/17 12:30 Urine Occult Blood NEGATIVE (NEGATIVE) 08/01/17 12:30 Urine Nitrite NEGATIVE (NEGATIVE) 08/01/17 12:30 Urine Bilirubin NEGATIVE (NEGATIVE) 08/01/17 12:30 Urine Urobilinogen 0.2 (NORMAL) E.U./dL (NORMAL) 08/01/17 12:30 Ur Leukocyte Esterase NEGATIVE (NEGATIVE) 08/01/17 12:30 Ur Microscopic Review NOT INDICATED 08/01/17 12:30 Urine Culture Comments NOT INDICATED 08/01/17 12:30
[2017-08-02] MEDS: GABAPENTIN 400 MG CAPSULE PO SCH (21:23)
[2017-08-02] MEDS: SODIUM CHLORIDE FLUSH 0.9% 10 ML SYRINGE IVP PRN (22:54)
[2017-08-02] MEDS: ACETAMINOPHEN 1,000 MG/100 ML 100 ML IV PRN (22:54)
[2017-08-03] MEDS: levoFLOXacin 750 MG/150 ML 750 MG/150 ML BAG IV SCH (00:30)
[2017-08-03] MEDS: SODIUM CHLORIDE FLUSH 0.9% 10 ML SYRINGE IVP SCH ×3 (00:30→17:35)
[2017-08-03] MEDS: guaiFENesin/CODEINE 5 ML UDC PO PRN ×3 (00:30→17:43)
[2017-08-03 05:12] LABS: BASOPHILS % (AUTO) 0.1 %; EOSINOPHILS % (AUTO) 0.2 %; HGB - HEMOGLOBIN 13.1 g/dL (14.0-18.0); LYMPHOCYTES # (AUTO) 1.2 10^3/uL (1.5-3.5); MEAN CORPUSCULAR VOLUME 94.1 fL (80.0-94.0); MEAN PLATELET VOLUME 9.6 fL (7.4-11.4); MONOCYTES # (AUTO) 1.7 10^3/uL (0.0-1.0); MONOCYTES % (AUTO) 12.6 %; NEUTROPHILS # (AUTO) 10.3 10^3/uL (1.5-6.6); NEUTROPHILS % (AUTO) 78.1 %; PLT - PLATELET COUNT 94 10^3/uL (130-450); RED BLOOD COUNT 4.09 10^6/uL (4.70-6.10); RED CELL DISTRIBUTION WIDTH 14.8 % (12.0-15.0); WHITE BLOOD COUNT 13.2 x10^3/uL (4.8-10.8)
[2017-08-03] MEDS: ACETAMINOPHEN 1,000 MG/100 ML 100 ML IV PRN ×2 (06:48→15:08)
[2017-08-03] MEDS: SODIUM CHLORIDE FLUSH 0.9% 10 ML SYRINGE IVP PRN ×2 (06:48→22:11)
[2017-08-03] MEDS: BUDESONIDE 0.5 MG/2 ML NEB INH SCH ×2 (07:23→20:21)
[2017-08-03] MEDS: FORMOTEROL FUMARATE NEB 20 MCG/2 ML INH SCH ×2 (07:23→20:21)
[2017-08-03] MEDS: CLOBETASOL EMOLLIENT 0.05% TOP SCH ×2 (07:41→17:35)
[2017-08-03] MEDS: SACCHAROMYCES BOULARDII 250 MG CAPSULE PO SCH ×2 (07:53→17:42)
[2017-08-03] MEDS: NS W/40 MEQ KCL 1,000 ML IV SCH ×2 (09:26→20:30)
[2017-08-03] MEDS: POLYETHYLENE GLYCOL 3350 17 GM PACKET PO SCH (10:31)
[2017-08-03] MEDS: FOLIC ACID 1 MG TABLET PO SCH (10:32)
[2017-08-03] MEDS: CELECOXIB 100 MG CAPSULE PO SCH ×2 (10:32→20:19)
[2017-08-03] MEDS: CHLORTHALIDONE 25 MG TABLET PO SCH (10:32)
[2017-08-03] MEDS: GABAPENTIN 300 MG CAPSULE PO SCH (10:33)
[2017-08-03] MEDS: ENOXAPARIN 40 MG/0.4 ML SYRINGE SUBQ SCH (10:33)
[2017-08-03] MEDS: cefTRIAXone 2 GM in SODIUM CHLORIDE 0.9% MINIBAG 100 ML IV SCH (10:36)
--- NOTE | 2017-08-03 11:55 | XRAY Report ---
EXAM: CHEST RADIOGRAPHY EXAM DATE: 08/03/2017 11:14 AM. CLINICAL HISTORY: Pneumonia. COMPARISON: 07/31/2017. TECHNIQUE: 1 view. FINDINGS: Lungs/Pleura: There is an airspace process in the right midlung, compatible with pneumonia in the denise ropriate clinical setting. There is pulmonary vascular congestion. No pneumothorax or pleural effusio ns. Mediastinum: Within exam limitations, the cardiomediastinal contour is normal. Other: Posterior arthritis of both shoulders noted. IMPRESSION: Pneumonia in the right midlung. [facility] Referring Provider Line: [phone] SITE ID: [id number]
[2017-08-03] MEDS: rifAMPin 150 MG CAPSULE PO SCH (15:06)
--- NOTE | 2017-08-03 15:48 | PROVIDER PROGRESS NOTE ---
Subjective - Prog Note Date Prog Note Date: 08/03/17 Prog Note Time: 10:45 - Subjective Pt reports feeling: Improved (The patient says he feels a little bit better. He is resting comfortably on room air.. He says he ate well today and moved his bowels this morning. He says he slept well and denies any other new problems.) Current Medications - Current Medications Current Medications: Benzocaine, budesonide, celecoxib, chlorthalidone, enoxaparin, folic acid, formoterol, gabapentin, guaifenesin/codeine, DuoNeb, Zofran, oxycodone, Polyethylene glycol, potassium chloride, rifampin, Saccharomyces, normal saline Objective - Vital Signs/Intake & Output Reviewed Vital Signs: Yes Vital Signs: Vital Signs x48h Temp Pulse Resp BP Pulse Ox 08/03/17 07:57 36.8 C 83 18 135/83 H 96 Intake & Output: Intake & Output 07/31/17 08/01/17 08/02/17 08/03/17 23:59 23:59 23:59 23:59 Intake Total 3460 1040 946.667 Output Total 775 Balance 2685 1040 946.667 - Objective General Appearance: positive: No acute distress, Alert Eyes Bilateral: positive: Normal inspection, PERRL, EOMI, No lid inflammation, Conjunctivae nml, No scleral icterus ENT: positive: ENT inspection nml, Pharynx nml, No signs of dehydration Neck: positive: Nml inspection, Thyroid nml, No JVD, Trachea midline. negative : Thyromegaly Respiratory: positive: Chest non-tender, No respiratory distress, Breath sounds nml, Other (Patient has a nagging, nonproductive cough.). negative: Wheezes, Rales, Rhonchi Cardiovascular: positive: Regular rate & rhythm, No murmur, No gallop Abdomen: positive: Non-tender, No organomegaly, Nml bowel sounds, No distention. negative: Guarding, Rebound Back: positive: Nml inspection. negative: CVA tenderness (R), CVA tenderness (L ) Skin: positive: Color nml, No rash, Warm, Dry. negative: Cyanosis Extremities: positive: Non-tender, Full ROM, Nml appearance, No pedal edema Neurologic/Psychiatric: positive: Oriented x3, CN's nml (2-12), Motor nml, Sensation nml, Mood/affect nml - Lab Results Fish Bones: 08/03/17 04:33 08/03/17 04:33 Other Labs: Lab Results x24hrs 08/03/17 08/03/17 Range/Units 04:33 04:33 WBC 13.2 H (4.8-10.8) x10^3/uL RBC 4.09 L (4.70-6.10) 10^6/uL Hgb 13.1 L (14.0-18.0) g/dL Hct 38.5 L (42.0-52.0) % MCV 94.1 H (80.0-94.0) fL MCH 32.0 H (27.0-31.0) pg MCHC 34.0 (32.0-36.0) g/dL RDW 14.8 (12.0-15.0) % Plt Count 94 L (130-450) 10^3/uL MPV 9.6 (7.4-11.4) fL Neut # 10.3 H (1.5-6.6) 10^3/uL Lymph # 1.2 L (1.5-3.5) 10^3/uL [place] # 1.7 H (0.0-1.0) 10^3/uL Eos # 0.0 (0.0-0.7) 10^3/uL Baso # 0.0 (0.0-0.1) 10^3/uL Absolute Nucleated RBC 0.01 x10^3/uL Nucleated RBC % 0.0 /100WBC Sodium 132 L (135-145) mmol/L Potassium 3.3 L (3.5-5.0) mmol/L Chloride 97 L (101-111) mmol/L Carbon Dioxide 25 (21-32) mmol/L Anion Gap 10.0 (6-13) BUN 17 (6-20) mg/dL Creatinine 1.0 (0.6-1.2) mg/dL Estimated GFR (MDRD) 73 L (>89) Glucose 126 H (70-100) mg/dL Calcium 8.0 L (8.5-10.3) mg/dL - Diagnostic Imaging Diagnostic Imaging Results: positive: Final report reviewed Diagnostic Imaging Comments: EXAM: CHEST RADIOGRAPHY EXAM DATE: 08/03/2017 11:14 AM. CLINICAL HISTORY: Pneumonia. COMPARISON: 07/31/2017. TECHNIQUE: 1 view. FINDINGS: Lungs/Pleura: There is an airspace process in the right midlung, compatible with pneumonia in the appropriate clinical setting. There is pulmonary vascular congestion. No pneumothorax or pleural effusions. Mediastinum: Within exam limitations, the cardiomediastinal contour is normal. Other: Posterior arthritis of both shoulders noted. IMPRESSION: Pneumonia in the right midlung. Assessment/Plan - Problem List (1) Community acquired pneumonia Impression: The patient is currently breathing easily on room air. He has a nagging nonproductive cough however. His sputum culture came back positive for MRSA which is sensitive to rifampin and so we will change his ceftriaxone and azithromycin to the rifampin. Qualifiers: Laterality: unspecified laterality Qualified Code(s): J18.9 - Pneumonia, unspecified organism (2) Influenza B Impression: The patient is currently being treated with Tamiflu. We will finish the course. (3) Asthma Impression: The patient's pulmonary status continues to improve but he is still symptomatic and short of breath at times. We will continue with the current steroids and nebulizer treatments. Qualifiers: Asthma severity: moderate (4) Rheumatoid arthritis Impression: We will continue with NSAIDs at this time as the immunomodulators would interfere with the patient's ability to fight the pneumonia.
[2017-08-03] MEDS: GABAPENTIN 400 MG CAPSULE PO SCH (20:19)
[2017-08-03] MEDS: BENZOCAINE/MENTHOL LOZENGE MM PRN (20:19)
[2017-08-03] MEDS: ONDANSETRON 4 MG/2 ML VIAL IVP PRN (22:11)
[2017-08-04] MEDS: guaiFENesin/CODEINE 5 ML UDC PO PRN ×2 (00:06→05:56)
[2017-08-04] MEDS: SODIUM CHLORIDE FLUSH 0.9% 10 ML SYRINGE IVP SCH ×2 (00:10→09:05)
[2017-08-04] MEDS: ACETAMINOPHEN 325 MG TABLET PO PRN ×3 (00:14→10:00)
[2017-08-04 05:26] LABS: HGB - HEMOGLOBIN 13.4 g/dL (14.0-18.0); MEAN CORPUSCULAR HGB CONC 33.7 g/dL (32.0-36.0); MEAN PLATELET VOLUME 8.8 fL (7.4-11.4); RED BLOOD COUNT 4.17 10^6/uL (4.70-6.10); RED CELL DISTRIBUTION WIDTH 14.9 % (12.0-15.0); WHITE BLOOD COUNT 10.4 x10^3/uL (4.8-10.8)
[2017-08-04] MEDS: rifAMPin 150 MG CAPSULE PO SCH (05:56)
[2017-08-04] MEDS: BUDESONIDE 0.5 MG/2 ML NEB INH SCH (07:46)
[2017-08-04] MEDS: FORMOTEROL FUMARATE NEB 20 MCG/2 ML INH SCH (07:46)
[2017-08-04] MEDS: CLOBETASOL EMOLLIENT 0.05% TOP SCH (08:58)
[2017-08-04] MEDS: CELECOXIB 100 MG CAPSULE PO SCH (09:00)
[2017-08-04] MEDS: GABAPENTIN 300 MG CAPSULE PO SCH (09:00)
[2017-08-04] MEDS: FOLIC ACID 1 MG TABLET PO SCH (09:00)
[2017-08-04] MEDS: POLYETHYLENE GLYCOL 3350 17 GM PACKET PO SCH (09:01)
[2017-08-04] MEDS: ENOXAPARIN 40 MG/0.4 ML SYRINGE SUBQ SCH (09:01)
[2017-08-04] MEDS: SACCHAROMYCES BOULARDII 250 MG CAPSULE PO SCH (09:01)
[2017-08-04] MEDS: NS W/40 MEQ KCL 1,000 ML IV SCH (09:02)
[2017-08-04] MEDS: CHLORTHALIDONE 25 MG TABLET PO SCH (09:08)
--- NOTE | 2017-08-04 09:50 | XRAY Report ---
EXAM: CHEST RADIOGRAPHY EXAM DATE: 08/04/2017 08:33 AM. CLINICAL HISTORY: Pneumonia. COMPARISON: 08/03/2017. TECHNIQUE: 1 view. FINDINGS: Lungs/Pleura: Dense, moderate right midlung consolidation has not significantly changed compared to y . No focal consolidation on the left. Mild elevation of the right hemidiaphragm as before. No pneumothorax or large pleural effusion. Mediastinum: Mild enlargement of the cardiac silhouette as before. Other: None. IMPRESSION: Right midlung opacity most likely reflects multilobar pneumonia. Follow-up is recommended to ensure resolution. [facility] Referring Provider Line: [phone] SITE ID: [id number]
--- NOTE | 2017-08-04 11:08 | Discharge Plan ---
Discharge Plan Disposition: 01 Home, Self Care Condition: Stable Prescriptions: Budesonide [Pulmicort] 0.5 mg INH RTBID #1 neb rifAMPin [Rifadin] 300 mg PO QDAC #10 capsule Diet: Regular Shower Restrictions: No Driving Restrictions: No No Smoking: If you smoke, Please STOP! Call for help.
--- NOTE | 2017-08-04 11:19 | DISCHARGE SUMMARY ---
Discharge Summary Admit Date: 08/01/17 Discharge Date: 08/04/17 Discharging Provider: Morelia Diaz Primary Care Provider: Neil Dowling Code Status: Attempt Resuscitation Condition at Discharge: Stable Discharge Disposition: 01 Home, Self Care - DIAGNOSES Admission Diagnoses: 1. Community-acquired pneumonia 2. Influenza 3. History of extrinsic asthma 4. Rheumatoid arthritis with associated other inflammatory disorders. 5. History of allergic rhinitis 6. Chronic pain Discharge Diagnoses with Status of Each Condition: 1. Community-acquired pneumonia- Resolving, the patient is no longer requiring supplemental oxygen. We have switched him over to rifampin for coverage and will send the patient home on a 10 day course of the rifampin. 2. Influenza- Resolving, the patient has had a full course of Tamiflu. 3. History of extrinsic asthma- The patient is doing well from a respiratory standpoint. He has no wheezes rhonchi or crackles at this time. Continue present care. 4. Rheumatoid arthritis with associated other inflammatory disorders- continue home care 5. History of allergic rhinitis - no issues this admission. Continue home care. 6. Chronic pain- controlled, continue home care. - ALLERGIES Allergies/Adverse Reactions: Allergies Allergy/AdvReac Type Severity Reaction Status Date / Time clindamycin Allergy THROAT Verified 08/01/17 11:46 SWELLING Penicillins Allergy Hives Verified 08/01/17 11:46 Sulfa (Sulfonamide Allergy NAUSEA/VOMI Verified 08/01/17 11:46 Antibiotics) TING tetracycline Allergy Hives Verified 08/01/17 11:46 - MEDICATIONS Home Medications: Ambulatory Orders Medication Instructions Recorded Confirmed Albuterol Sulf [Ventolin Hfa 2 puffs INH Q4HR PRN 07/28/17 08/01/17 Inhaler] Azelastine HCl 2 spray JHONNY BID 07/28/17 08/01/17 Budesonide/Formoterol Fumarate 2 puffs INH BID 07/28/17 08/01/17 [Symbicort 160-4.5 Mcg Inhaler] Celecoxib [CeleBREX] 100 mg PO BID PRN 07/28/17 08/01/17 Chlorthalidone 12.5 mg PO DAILY 07/28/17 08/01/17 Flunisolide 2 sprays JHONNY BID 07/28/17 08/01/17 Folic Acid 1 mg PO DAILY 07/28/17 08/01/17 Gabapentin 600 mg PO DAILY 07/28/17 08/01/17 Ipratropium/Albuterol Sulfate 3 ml INH TID PRN 07/28/17 08/01/17 [Iprat-Albut 0.5-3(2.5) mg/3 ml] Omeprazole 40 mg PO QDAC 07/28/17 08/01/17 Sildenafil Citrate 50 mg PO PRN PRN 07/28/17 08/01/17 Acetaminophen 500 - 1,000 mg PO Q6H PRN 08/01/17 08/01/17 Gabapentin 1,200 mg PO QPM 08/01/17 08/01/17 Loratadine/Pseudoephedrine 1 tab PO BID 08/01/17 08/01/17 [Claritin-D 12 Hour Tablet] Methotrexate/Pf [Rasuvo 10 mg/0.2 10 mg SUBQ Q7D 08/01/17 08/01/17 ml Autoinj] Montelukast Sodium 10 mg PO QPM 08/01/17 08/01/17 Multivitamin [Theragran] 1 tab PO DAILY 08/01/17 08/01/17 Promethazine HCl/Codeine 5 ml PO Q6H PRN 08/01/17 08/01/17 [Prometh-Codein 6.25-10 mg/5 ml] Acetaminophen [Tylenol] 650 mg PO Q4HR PRN tablet 08/04/17 Budesonide [Pulmicort] 0.5 mg INH RTBID #1 neb 08/04/17 Formoterol Fumarate [Perforomist] 20 mcg INH RTBID neb 08/04/17 Gabapentin [Neurontin] 1,200 mg PO QPM capsule 08/04/17 Polyethylene Glycol 3350 [Miralax] 17 gm PO DAILY packet 08/04/17 guaiFENesin/CODEINE [Robitussin AC] 5 ml PO Q6HR PRN udc 08/04/17 rifAMPin [Rifadin] 300 mg PO QDAC #10 capsule 08/04/17 - PHYSICAL EXAM AT DISCHARGE General Appearance: positive: No acute distress, Alert Eyes Bilateral: positive: Normal inspection, PERRL, EOMI, No lid inflammation, Conjunctivae nml, No scleral icterus ENT: positive: ENT inspection nml, Pharynx nml, No signs of dehydration Neck: positive: Nml inspection, Thyroid nml, No JVD, Trachea midline. negative : Thyromegaly Respiratory: positive: Chest non-tender, No respiratory distress, Breath sounds nml. negative: Wheezes, Rales, Rhonchi Cardiovascular: positive: Regular rate & rhythm, No murmur, No gallop Peripheral Pulses: positive: 1+ Abdomen: positive: Non-tender, No organomegaly, Nml bowel sounds, No distention. negative: Guarding, Rebound Back: positive: Nml inspection. negative: CVA tenderness (R), CVA tenderness (L ) Skin: positive: Color nml, No rash, Warm, Dry. negative: Cyanosis Extremities: positive: Non-tender, Full ROM, Nml appearance Neurologic/Psychiatric: positive: Oriented x3, CN's nml (2-12), Motor nml, Sensation nml, Mood/affect nml - LABS Result Diagrams: 08/04/17 05:05 08/03/17 04:33 - DIAGNOSTIC IMAGING Diagnostic Imaging Results: Final report reviewed Diagnostic Imaging Results Comments: EXAM: CHEST RADIOGRAPHY EXAM DATE: 08/03/2017 11:14 AM. CLINICAL HISTORY: Pneumonia. COMPARISON: 07/31/2017. TECHNIQUE: 1 view. FINDINGS: Lungs/Pleura: There is an airspace process in the right midlung, compatible with pneumonia in the appropriate clinical setting. There is pulmonary vascular congestion. No pneumothorax or pleural effusions. Mediastinum: Within exam limitations, the cardiomediastinal contour is normal. Other: Posterior arthritis of both shoulders noted. IMPRESSION: Pneumonia in the right midlung. - FOLLOW UP Follow Up: Neil Dowling within 1 week - TIME SPENT Time Spent in Discharge (Minutes): 35
[2017-08-04 11:41] VITALS: BP 110/68
== END 2017-08-04 12:23 | disposition home or self-care (01) | DRG 195 ==
LOC: EDUNIT# → ED 22:53 → MS2 08-01 00:06
PROVIDERS: ADMIT Specialist; ATTEND Hospitalist
DX: J18.9 Pneumonia, unspecified organism (principal); J10.00 Influenza due to other identified influenza virus with unspecified type of pneumonia; Z96.649 Presence of unspecified artificial hip joint; Z96.619 Presence of unspecified artificial shoulder joint; J45.909 Unspecified asthma, uncomplicated; M06.9 Rheumatoid arthritis, unspecified; G89.29 Other chronic pain; L40.50 Arthropathic psoriasis, unspecified; Z86.14 Personal history of Methicillin resistant Staphylococcus aureus infection; Z79.899 Other long term (current) drug therapy; H91.90 Unspecified hearing loss, unspecified ear; Z88.0 Allergy status to penicillin
CPT/HCPCS: 36415; 71045; 71046; 80048; 80053; 81001; 81003; 83605; 83690; 84484; 85025; 87040; 87070; 87086; 87205; 94640; 94664; 96365; 99284; 99285

== ENCOUNTER 2018-04-29 13:27 | Outpatient (CLI) | payer MEDICARE, OTHER ==
[2018-04-29 17:58] LABS: CALCIUM 8.6 mg/dL (8.5-10.3); CREATININE 1.2 mg/dL (0.6-1.2)
== END 2018-04-29 13:28 | disposition home or self-care (01) ==
LOC: LAB.F 13:27
PROVIDERS: ATTEND Internal Medicine Rheumatology
DX: Z79.1 Long term (current) use of non-steroidal anti-inflammatories (NSAID) (principal)
CPT/HCPCS: 36415; 80048

== ENCOUNTER 2018-05-23 14:29 | Outpatient (CLI) | payer MEDICARE, OTHER ==
[2018-05-23 17:41] LABS: CALCIUM 8.8 mg/dL (8.5-10.3); CREATININE 1.2 mg/dL (0.6-1.2)
== END 2018-05-23 14:30 | disposition home or self-care (01) ==
LOC: LAB.F 14:29
PROVIDERS: ATTEND Internal Medicine Rheumatology
DX: M48.10 Ankylosing hyperostosis [Forestier], site unspecified (principal)
CPT/HCPCS: 36415; 80048

== ENCOUNTER 2019-02-05 16:58 | Outpatient (CLI) | payer MEDICARE, OTHER | END 2019-02-05 16:59 | disposition EMS.NT | LOC: EMS 16:58 | PROVIDERS: ATTEND Surgery | DX: Z03.89 Encounter for observation for other suspected diseases and conditions ruled out (principal) ==

== ENCOUNTER 2022-01-22 11:00 | Outpatient (CLI) | payer MEDICARE, OTHER ==
[2022-01-22 15:17] LABS: HGB - HEMOGLOBIN 14.5 g/dL (14.0-18.0); MEAN CORPUSCULAR HEMOGLOBIN 30.1 pg (27.0-31.0); MEAN CORPUSCULAR VOLUME 91.5 fL (80.0-94.0); MEAN PLATELET VOLUME 11.9 fL (7.4-11.4); RED BLOOD COUNT 4.81 10^6/uL (4.70-6.10); RED CELL DISTRIBUTION WIDTH 13.4 % (12.0-15.0); WHITE BLOOD COUNT 6.3 x10^3/uL (4.8-10.8)
[2022-01-22 15:30] LABS: ALBUMIN 4.1 g/dL (3.2-5.5); ALBUMIN/GLOBULIN RATIO 1.2 (1.0-2.2); BILIRUBIN,TOTAL 0.6 mg/dL (0.2-1.0); CALCIUM 9.3 mg/dL (8.5-10.3); CRP - C-REACTIVE PROTEIN 1.3 mg/dL (0-1.0); POTASSIUM 3.8 mmol/L (3.5-5.0); TOTAL PROTEIN 7.6 g/dL (6.7-8.2)
== END 2022-01-22 11:01 | disposition home or self-care (01) ==
LOC: LAB.S 11:00
PROVIDERS: ATTEND Internal Medicine
DX: Z79.899 Other long term (current) drug therapy (principal); Z79.1 Long term (current) use of non-steroidal anti-inflammatories (NSAID)
CPT/HCPCS: 36415; 80053; 85027; 85651; 86140

== ENCOUNTER 2022-06-04 07:00 | Outpatient (CLI) | payer MEDICARE, OTHER | END 2022-06-04 23:59 | disposition home or self-care (01) | LOC: LAB.S 07:00 | PROVIDERS: ATTEND Emergency Medicine | DX: L02.01 Cutaneous abscess of face (principal) | CPT/HCPCS: 87070; 87181; 87205 ==

== ENCOUNTER 2022-06-06 12:56 | Outpatient (CLI) | payer MEDICARE, OTHER ==
[2022-06-06 17:26] LABS: CHOL/HDL RATIO 2.4 (<5.0); CHOLESTEROL 104 mg/dL; HDL CHOLESTEROL 44 mg/dL; LDL CHOLESTEROL,CALCULATED 20 mg/dL; LDL/HDL RATIO 0.5 (<3.6); TRIGLYCERIDES 202 mg/dL; VLDL CHOLESTEROL 40 mg/dL
[2022-06-06 17:31] LABS: CREATININE,URINE 41.3 mg/dL; MICROALBUM/CREATININE RATIO,UR 55.7 ug/mg (<30.0); MICROALBUMIN,URINE 2.3 mg/dL (0-300.0)
[2022-06-06 21:09] LABS: ESTIMATED AVERAGE GLUCOSE 272 mg/dL (70-100); HEMOGLOBIN A1c% 11.1 % (4.27-6.07)
== END 2022-06-06 12:57 | disposition home or self-care (01) ==
LOC: LAB.S 12:56
PROVIDERS: ATTEND Internal Medicine
DX: E11.9 Type 2 diabetes mellitus without complications (principal); I77.89 Other specified disorders of arteries and arterioles
CPT/HCPCS: 36415; 80061; 82043; 82570; 83036; 83721